=== PATIENT | female | born 1990 | race Two or more races ===

== ENCOUNTER 2017-03-05 09:18 | Emergency (ER) | payer BC ==
[~2017-03-05] VITALS: Ht 167.6 cm; Wt 73.0 kg
[2017-03-05 09:23] VITALS: BP 122/78
[2017-03-05] MEDS ORDERED: ONDANSETRON 2MG/ML, 2ML ONE (10:11)
[2017-03-05] MEDS ORDERED: morphine SULFATE 10 MG/ML, 1ML ONE (10:11)
[2017-03-05] MEDS ORDERED: PROMETHAZINE 25 MG/ML, 1ML ONE (10:28)
[2017-03-05] MEDS ORDERED: MORPHINE SULFATE 4 MG/ML, 1ML IVPush PRN (10:30)
[2017-03-05] MEDS ORDERED: SODIUM CHLORIDE 0.9% 1,000ML IVBOLUS ONE (10:30)
[2017-03-05] MEDS ORDERED: PROMETHAZINE 25 MG/ML, 1ML IM ONE (10:30)
[2017-03-05] MEDS ORDERED: ONDANSETRON 2MG/ML, 2ML IVPush ONE (10:30)
[2017-03-05] MEDS ORDERED: SODIUM CHLORIDE FLUSH 10ML SYR IVF ONE (10:30)
[2017-03-05 10:49] LABS: HEMATOCRIT 39.7 % (34.6-47.8); HEMOGLOBIN 13.6 g/dL (11.7-16.4); WHITE BLOOD COUNT 6.4 x10^3/uL (3.4-10)
[2017-03-05 10:59] LABS: ASPARTATE AMINO TRANSFERASE 14 U/L (15-37); BLOOD UREA NITROGEN 7 mg/dL (7-18)
[2017-03-05 11:05] LABS: IS PT STATUS REG ER OR PRE ER? YES
[2017-03-05 11:18] LABS: DAU SCREEN DISCLAIMER
[2017-03-05] MEDS ORDERED: HYDROmorphone 1 MG/ML, 1ML ONE (15:11)
== END 2017-03-05 13:22 | disposition home or self-care (01) ==
LOC: ED 13:16
DX: R55 Syncope and collapse (principal); R19.7 Diarrhea, unspecified; R11.0 Nausea; Z88.1 Allergy status to other antibiotic agents
CPT/HCPCS: 36415; 80053; 80307; 81001; 84484; 84703; 85025; 87086; 93005; 96361; 96372; 96374; 99285; J2550; J7030; G0479